=== PATIENT | female | born 1995 | race Caucasian/White ===

== ENCOUNTER 2022-06-26 09:40 | Emergency (ER) | payer MEDICAID ==
[~2022-06-26] VITALS: Ht 157.5 cm; Wt 67.0 kg
[2022-06-26 09:53] VITALS: BP 118/78
[2022-06-26] MEDS ORDERED: DIPHENHYDRAMINE 50MG CAPSULE PO ONE (12:00)
[2022-06-26] MEDS ORDERED: METHYLPREDNISOLONE SOD SUCC 125 MG/2 ML VIAL IM ONE (12:00)
[2022-06-26] MEDS ORDERED: PREDNISONE 20MG TABLET PO ONE (12:00)
[2022-06-26 12:49] LABS: CLARITY URINE CLEAR (CLEAR); COLOR URINE YELLOW (YELLOW); KETONES URINE NEGATIVE (NEGATIVE); LEUKOCYTE ESTERASE URINE NEGATIVE (NEGATIVE); NITRITE URINE NEGATIVE (NEGATIVE); OCCULT BLOOD URINE NEGATIVE (NEGATIVE); PH URINE 6.5 (4.5-8.0); PROTEIN URINE NEGATIVE (NEGATIVE); SPECIFIC GRAVITY URINE 1.016 (1.005-1.030); UROBILINOGEN URINE 0.2 E.U./dL (0.2-1.0)
[2022-06-26] MEDS ORDERED: ACETAMINOPHEN 325MG TABLET PO ONE (13:00)
[2022-06-29 17:06] LABS: NEISSERIA GONORRHOEAE NAA Negative (Negative)
== END 2022-06-26 13:13 | disposition left against medical advice (07) ==
LOC: ER 11:26
DX: R22.0 Localized swelling, mass and lump, head (principal); T39.315A Adverse effect of propionic acid derivatives, initial encounter; Y92.018 Other place in single-family (private) house as the place of occurrence of the external cause; N89.8 Other specified noninflammatory disorders of vagina
CPT/HCPCS: 81003; 81025; 87210; 87491; 87591; 99284; J7512; Q0163